=== PATIENT | female | born 2000 | race Caucasian/White ===

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

== ENCOUNTER 2018-02-05 15:33 | Emergency (ER) | payer BC, OTHER ==
[2018-02-05 16:32] VITALS: BP 110/66
--- NOTE | 2018-02-05 17:19 | UC ---
Skin Complaint HPI - HPI Summary HPI Summary: The patient is a 18-year-old female with about a 48 hour history of a vesicular rash to her left forehead. She has no eye pain or photophobia. - History of Current Complaint Chief Complaint: UCSkin Time Seen by Provider: 02/05/18 17:00 Stated Complaint: RASH Hx Obtained From: Patient Hx Last Menstrual Period: 01/31/18 Onset/Duration: Gradual Onset, Lasting Days Skin Exposure Onset/Duration: Days Ago Onset Severity: Mild Current Severity: Moderate Pain Intensity: 5 Pain Scale Used: 0-10 Numeric Location: Discrete Character: Pain, Redness Aggravating Factor(s): Touch Alleviating Factor(s): Nothing Associated Signs & Symptoms: Positive: Rash - Allergy/Home Medications Allergies/Adverse Reactions: Allergies Allergy/AdvReac Type Severity Reaction Status Date / Time No Known Allergies Allergy Verified 02/05/18 16:27 Home Medications: Home Medications Acetaminophen TAB* [Tylenol TAB*] 650 mg PO Q4H PRN 02/05/18 [History Confirmed 02/05/18] Review of Systems Constitutional: Negative Skin: Rash Eyes: Negative ENT: Negative Respiratory: Negative Cardiovascular: Negative Gastrointestinal: Negative Genitourinary: Negative Motor: Negative Neurovascular: Negative Musculoskeletal: Negative Neurological: Negative Psychological: Negative Is Patient Immunocompromised?: No All Other Systems Reviewed And Are Negative: Yes PMH/Surg Hx/FS Hx/Imm Hx Previously Healthy: Yes - Surgical History Surgical History: Yes Surgery Procedure, Year, and Place: T&A, ~2000, [place] - Family History Known Family History: Positive: Hypertension - Maternal Grandfather, Diabetes, Respiratory Disease - mom has asthma - Social History Alcohol Use: None Substance Use Type: None Smoking Status (MU): Never Smoked Tobacco Have You Smoked in the Last Year: No Household Exposure Type: Cigarettes - Immunization History Most Recent Influenza Vaccination: Not the 2016/2016 Season Vaccination Up to Date: Yes Physical Exam Triage Information Reviewed: Yes Appearance: Well-Appearing, No Pain Distress, Well-Nourished Vital Signs: Initial Vital Signs Temp 98.5 F 02/05/18 16:28 Pulse 80 02/05/18 16:28 Resp 14 02/05/18 16:28 BP 110/66 02/05/18 16:28 Pulse Ox 100 02/05/18 16:28 Vital Signs Reviewed: Yes ENT: Positive: Hearing grossly normal. Negative: Nasal congestion, Nasal drainage, Tonsillar exudate, Trismus, Muffled voice, Hoarse voice Neck: Positive: Nontender, No Lymphadenopathy Respiratory: Positive: Lungs clear, Normal breath sounds, No respiratory distress, No accessory muscle use Cardiovascular: Positive: RRR, No Murmur Musculoskeletal: Positive: ROM Intact, No Edema Neurological: Positive: Alert Skin: Positive: rashes - see image Course/Dx - Diagnoses Provider Diagnoses: vesicular rash-?shingles Discharge - Sign-Out/Discharge Documenting (check all that apply): Patient Departure - Discharge Plan Condition: Stable Disposition: HOME Prescriptions: Famciclovir(NF) [Famvir(NF)] 500 mg PO TID #21 tab Patient Education Materials: Pardeep (ED) Referrals: Mendy Menendez PA [Primary Care Provider] - 4 Days - Billing Disposition and Condition Condition: STABLE Disposition: Home Images Head: 1 - vesicular rash
[2018-02-09 12:02] LABS: HSV 1 PCR Positive (Negative); Varicella Zoster Source LEFT FORE HEAD
== END 2018-02-05 17:24 | disposition home or self-care (01) ==
LOC: UCCORT 15:33
DX: R21 Rash and other nonspecific skin eruption (principal)
CPT/HCPCS: 87529; 87798; 99212; G0463

== ENCOUNTER 2018-08-12 12:46 | Emergency (ER) | payer SELFPAY ==
[2018-08-12 13:11] VITALS: BP 114/70
[2018-08-12] MEDS ORDERED: Fluorescein Sodium TOPICAL* 1 MG TEST STRIP ONE (14:07)
[2018-08-12] MEDS ORDERED: Fluorescein Sodium TOPICAL* 1 MG TEST STRIP OPHTHALMIC ONE (14:07)
--- NOTE | 2018-08-12 14:07 | UC ---
UC General HPI - HPI Summary HPI Summary: pt noted L eye felt itchy 2 days ago. she then noted a FB sensation to the L eye and some mild redness. side of that eye with mild crack and crusting plus outside of L upper and lower lid with mild swelling and redness. no eye pain or visual loss. no contact use, fever, headache or pain with eye movement. - History of Current Complaint Chief Complaint: UCEye Stated Complaint: LEFT EYE COMPLAINT Time Seen by Provider: 08/12/18 13:49 Hx Obtained From: Patient Hx Last Menstrual Period: 07/19/18 Onset/Duration: Gradual Onset Timing: Constant Pain Intensity: 6 Associated Signs & Symptoms: Negative: Fever, Headache - Allergy/Home Medications Allergies/Adverse Reactions: Allergies Allergy/AdvReac Type Severity Reaction Status Date / Time No Known Allergies Allergy Verified 08/12/18 13:06 PMH/Surg Hx/FS Hx/Imm Hx Previously Healthy: Yes - Surgical History Surgical History: Yes Surgery Procedure, Year, and Place: T&A, ~2000, [place] - Family History Known Family History: Positive: Hypertension - Maternal Grandfather, Diabetes, Respiratory Disease - mom has asthma - Social History Alcohol Use: None Substance Use Type: None Smoking Status (MU): Never Smoked Tobacco Have You Smoked in the Last Year: No Household Exposure Type: Cigarettes - Immunization History Most Recent Influenza Vaccination: Not the 2015/2016 Season Vaccination Up to Date: Yes Review of Systems All Other Systems Reviewed And Are Negative: Yes Constitutional: Positive: Negative Skin: Positive: Negative Eyes: Positive: Drainage, Eye Redness. Negative: Blurred Vision, Diplopia ENT: Positive: Negative Respiratory: Positive: Negative Cardiovascular: Positive: Negative Gastrointestinal: Positive: Negative Genitourinary: Positive: Negative Motor: Positive: Negative Neurovascular: Positive: Negative Musculoskeletal: Positive: Negative Neurological: Positive: Negative Psychological: Positive: Negative Physical Exam Triage Information Reviewed: Yes Appearance: Well-Appearing Vital Signs: Initial Vital Signs Temp 97.5 F 08/12/18 13:06 Pulse 73 08/12/18 13:06 Resp 14 08/12/18 13:06 BP 114/70 08/12/18 13:06 Pulse Ox 100 08/12/18 13:06 Vital Signs Reviewed: Yes Eyes: Positive: Other: - Mild swelling and slight erythema L lateral upper and lower lids. Lateral L canthus with crack in skin and crusting. PERRL, EOMI and painless. Conjunctiva L mildly injected/R is clear. AC's clear. Lids everted and no FB's. No auricular adenopathy. Visual acuity noted(see nurse note). stain L eye, no uptake. ENT: Positive: Pharynx normal, TMs normal. Negative: Nasal congestion, Nasal drainage Neck: Positive: Supple, Nontender, No Lymphadenopathy Respiratory: Positive: Lungs clear, Normal breath sounds Cardiovascular: Positive: RRR, No Murmur Abdomen Description: Positive: Nontender Bowel Sounds: Positive: Present Musculoskeletal: Positive: ROM Intact Neurological: Positive: Alert Psychological: Positive: Age Appropriate Behavior Skin Exam: Normal Course/Dx - Course Course Of Treatment: No concern for corneal ulcer, dendrites or orbital cellulitis - Differential Dx - Multi-Symptom Differential Diagnoses: Other - conjunctivitis, periorbital/orbital cellulitis, FB eye/abrasion/ulceration/dendrites. - Diagnoses Provider Diagnosis: Conjunctivitis, Periorbital cellulitis of left eye Discharge - Sign-Out/Discharge Documenting (check all that apply): Patient Departure All imaging exams completed and their final reports reviewed: No Studies - Discharge Plan Condition: Stable Disposition: HOME Prescriptions: Amoxicillin/Clavulanate TAB* [Augmentin TAB 875*] 875 mg PO BID 10 Days #20 tab Erythromycin OPTH OINT* [Erythromycin 0.5% OPTH OINT*] 1 applic LEFT EYE TID 7 Days #1 ophth.oint Patient Education Materials: Periorbital Cellulitis in Adults (ED), Conjunctivitis (ED) Referrals: Mendy Menendez PA [Primary Care Provider] - 2 Days - Billing Disposition and Condition Condition: STABLE Disposition: Home
== END 2018-08-12 14:22 | disposition home or self-care (01) ==
LOC: UCCORT 12:46
DX: H10.9 Unspecified conjunctivitis (principal); L03.213 Periorbital cellulitis
CPT/HCPCS: 99212; A9270-GY; G0463

== ENCOUNTER 2018-11-02 20:39 | Emergency (ER) | payer BC ==
--- OUTSIDE RECORDS SUMMARY | 2018-11-02 20:52 | XMS REPORT | Continuity of Care Document ---
:2000 External Reference #:[id number] Author Name Carolin Morales NP Address [address] [place] [id number] Care Team Providers Name Role Phone Yes Primary Care Physician Unavailable Payers Date Identification Numbers Payment Provider Subscriber Policy Number: good cause Medicaid (JC) Kiana Mcmillan PayID: [id number] [address] [place] [address] Advance Directives Description No Information Available Problems Description No Information Family History Date Family Member(s) Observation Comments Father Alive Father No Current Problems Mother Alive Mother No Current Problems Social History Type Date Description Comments Sex Female Education Currently working on Bachelor's Degree Marital Status Legal Status: Never Tobacco Use Reviewed: 10/09/18 Never Smoked Cigars Tobacco Use Reviewed: 10/09/18 Never Smoked A Pipe Smoking Status Reviewed: 10/09/18 Never Smoked A Pipe Tobacco Use Reviewed: 10/09/18 Never Used Smokeless Tobacco ETOH Use 10/09/2018 Denies alcohol use Recreational Drug Use 10/09/2018 Never Used Drugs Recreational Drug Use 10/09/2018 Teaching provided regarding Naloxone/Narcan Training Available At [facility] Tattoo/Piercing Piercings professionally done Condom Use Occasionally UNKNOWN 10/09/2018 Never E-Cigarette user Allergies, Adverse Reactions, Alerts Description No Known Drug Allergies Medications Description No Active Medications Immunizations Description No Information Available Vital Signs Date Vital Result Comment 10/09/2018 11:49am BP Systolic 99 mmHg BP Diastolic 64 mmHg Height 65 inches 5'5" Weight 148.00 lb BMI (Body Mass Index) 24.6 kg/m2 Results Test Date Facility Test Result H/L Range Note Laboratory test 10/09/2018 [facility] Test positive finding Urine..... Procedures Description No Information Available Encounters Description No Information Available Plan of Treatment 10/09/2018 - Carolin Morales, NPR10.2 Pelvic and perineal painComments:+UPT and pt is reporting sharp pelvic pain. Moderate tenderness ovar left adnexal area. Advised patient to go to ER to r/o an ectopic . Patient is willing to do this. Report callled to ER.Follow up:[id number] Encounter for other general counseling and advice on procreaComments:Patient would like an el. ab. Discussed her bc options afterwards. She is not certain if she will RTO or start bc with the el.ab. provider.Z32.01 Encounter for test, result positiveComments:Options counseling done. Patient is certain that she would like a el.ab.Z11.3 Encounter for screening for infections with a predominantlyNew Labs:Chlamydia/N Gonorroeae Rna Tma Urogenit, Ordered: Comments:Reviewed STD risks and prevention with patient. Patient states understanding.
[2018-11-02 20:54] VITALS: BP 120/76
--- NOTE | 2018-11-02 21:00 | UC ---
Throat Pain/Nasal Mick HPI - HPI Summary HPI Summary: 18 yo female with sore throat and swollen glands x 3 days no fever slight headache no n/v/d - History of Current Complaint Chief Complaint: UCGeneralIllness Stated Complaint: SORE THROAT Time Seen by Provider: 11/02/18 20:52 Hx Obtained From: Patient Hx Last Menstrual Period: 10/29/18 Onset/Duration: Gradual Onset Severity: Moderate Pain Intensity: 6 Pain Scale Used: 0-10 Numeric Cough: Nonproductive Associated Signs & Symptoms: Positive: Negative. Negative: Wheezing, Hoarseness , Sinus Discomfort, Nasal Discharge, Fever, Vomiting, Rash - Allergies/Home Medications Allergies/Adverse Reactions: Allergies Allergy/AdvReac Type Severity Reaction Status Date / Time No Known Allergies Allergy Verified 11/02/18 20:52 Home Medications: Home Medications Control Pill 1 tab PO DAILY 11/02/18 [History Confirmed 11/02/18] Ibuprofen TAB* [Motrin TAB* 400 MG] 400 mg PO Q6H PRN 11/02/18 [History Confirmed 11/02/18] PMH/Surg Hx/FS Hx/Imm Hx Previously Healthy: Yes - Surgical History Surgical History: Yes Surgery Procedure, Year, and Place: T&A, ~2000, [place] - Family History Known Family History: Positive: Hypertension - Maternal Grandfather, Diabetes, Respiratory Disease - mom has asthma - Social History Alcohol Use: None Substance Use Type: None Smoking Status (MU): Never Smoked Tobacco Have You Smoked in the Last Year: No Household Exposure Type: Cigarettes - Immunization History Most Recent Influenza Vaccination: Not the 2015/2016 Season Vaccination Up to Date: Yes Review of Systems All Other Systems Reviewed And Are Negative: Yes Constitutional: Positive: Negative Skin: Positive: Negative Eyes: Positive: Negative ENT: Positive: Sore Throat Respiratory: Positive: Negative Cardiovascular: Positive: Negative Gastrointestinal: Positive: Negative Genitourinary: Positive: Negative Motor: Positive: Negative Neurovascular: Positive: Negative Musculoskeletal: Positive: Negative Neurological: Positive: Negative Psychological: Positive: Negative Physical Exam Triage Information Reviewed: Yes Appearance: Well-Appearing, No Pain Distress, Well-Nourished Vital Signs: Initial Vital Signs Temp 99.0 F 11/02/18 20:53 Pulse 94 11/02/18 20:53 Resp 16 11/02/18 20:53 BP 120/76 11/02/18 20:53 Pulse Ox 100 11/02/18 20:53 Vital Signs Reviewed: Yes Eyes: Positive: Conjunctiva Clear ENT: Positive: Pharyngeal erythema, Uvula midline. Negative: Hearing grossly normal, Pharynx normal, Nasal congestion, Nasal drainage, TMs normal, TM bulging , TM dull, TM red, Tonsillar swelling, Tonsillar exudate, Trismus, Muffled voice , Hoarse voice, Dental tenderness, Sinus tenderness Dental Exam: Normal Neck: Positive: Supple, Nontender, Enlarged Nodes @ - ant cervical Respiratory: Positive: Lungs clear, Normal breath sounds, No respiratory distress, No accessory muscle use Cardiovascular: Positive: RRR, No Murmur Musculoskeletal: Positive: ROM Intact, No Edema Neurological: Positive: Alert Psychological Exam: Normal Skin Exam: Normal Throat Pain/Nasal Course/Dx - Course Course Of Treatment: strep - - Differential Dx/Diagnosis Provider Diagnosis: Pharyngitis Discharge - Sign-Out/Discharge Documenting (check all that apply): Patient Departure All imaging exams completed and their final reports reviewed: No Studies - Discharge Plan Condition: Stable Disposition: HOME Patient Education Materials: Pharyngitis (ED) Referrals: Mendy Menendez PA [Primary Care Provider] - Additional Instructions: strep test - recheck in 3-4 days if not better tylenol or advil for pain - Billing Disposition and Condition Condition: STABLE Disposition: Home
== END 2018-11-02 21:17 | disposition home or self-care (01) ==
LOC: UCCORT 20:39
DX: J02.9 Acute pharyngitis, unspecified (principal); R59.1 Generalized enlarged lymph nodes
CPT/HCPCS: 87651; 99211; G0463

== ENCOUNTER 2018-11-03 19:38 | Emergency (ER) | payer BC ==
[2018-11-03 21:18] VITALS: BP 120/71
--- NOTE | 2018-11-03 21:33 | UC ---
UC General HPI - HPI Summary HPI Summary: 4 day hx worsening headache, sore throat and some cough. now has a fever as well. seen here yesterday and rapid strep was negative. Today, + muffle voice and pain makes swallowing difficult. denies hx mono. admits to fatigue. 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 Hx Last Menstrual Period: 10/29/18 Onset/Duration: Gradual Onset Timing: Constant Pain Intensity: 9 Associated Signs & Symptoms: Negative: Abdominal Pain, SOB - Allergy/Home Medications Allergies/Adverse Reactions: Allergies Allergy/AdvReac Type Severity Reaction Status Date / Time No Known Allergies Allergy Verified 11/03/18 21:18 Home Medications: Home Medications Bcp 1 tab DAILY 11/03/18 [History Confirmed 11/03/18] PMH/Surg Hx/FS Hx/Imm Hx Previously Healthy: Yes - Surgical History Surgical History: Yes Surgery Procedure, Year, and Place: T&A, ~2000, [place] - Family History Known Family History: Positive: Hypertension - Maternal Grandfather, Diabetes, Respiratory Disease - mom has asthma - Social History Alcohol Use: None Substance Use Type: None Smoking Status (MU): Never Smoked Tobacco Have You Smoked in the Last Year: No Household Exposure Type: Cigarettes - Immunization History Most Recent Influenza Vaccination: Not the 2016/2016 Season Vaccination Up to Date: Yes Review of Systems All Other Systems Reviewed And Are Negative: Yes Constitutional: Positive: Fever, Fatigue ENT: Positive: Sore Throat Respiratory: Positive: Cough Gastrointestinal: Negative: Abdominal Pain Neurological: Positive: Headache Physical Exam Triage Information Reviewed: Yes Appearance: Ill-Appearing - but non toxic Vital Signs: Initial Vital Signs Temp 100.8 F 11/03/18 21:15 Pulse 127 11/03/18 21:15 Resp 17 11/03/18 21:15 BP 120/71 11/03/18 21:15 Pulse Ox 99 11/03/18 21:15 Vital Signs Reviewed: Yes Eyes: Positive: Conjunctiva Clear ENT: Positive: Pharyngeal erythema, TMs normal, Muffled voice, Uvula midline. Negative: Nasal drainage, Trismus Neck: Positive: Supple, Tenderness @ - anterior nodes, Enlarged Nodes @ - anterior cervical chain Respiratory: Positive: Lungs clear, Normal breath sounds, No respiratory distress Cardiovascular: Positive: No Murmur, Brisk Capillary Refill, Tachycardia - 120 Abdomen Description: Positive: Nontender, No Organomegaly, Soft. Negative: Distended, Guarding, Hepatomegaly Bowel Sounds: Positive: Present Musculoskeletal: Positive: ROM Intact Neurological: Positive: Alert Psychological: Positive: Normal Response To Family, Age Appropriate Behavior Skin Exam: Normal Skin: Negative: Rashes - Additional Comments no axillary, epitrochlear or inguinal adenopathy. Course/Dx - Course Course Of Treatment: HR improving. I think the tachycardia is fever related. Pt taking po fluids with no difficulty. - Differential Dx - Multi-Symptom Differential Diagnoses: Other - no concern for peritonsilar or retropharyngeal abscess. abruptly worse with fever, muffled voice and more pain thus will cover for presumptive bacterial infection with tc pending. will use zithromax to avoid rash if this does test positive for mono. a cbc with diff and mono testing are pending. - Diagnoses Provider Diagnosis: Pharyngitis Discharge - Sign-Out/Discharge Documenting (check all that apply): Patient Departure All imaging exams completed and their final reports reviewed: No Studies - Discharge Plan Condition: Stable Disposition: HOME Prescriptions: Azithromycin 500 mg PO DAILY 4 Days #4 tablet Patient Education Materials: Pharyngitis (ED) Forms: *Work Release Referrals: Mendy Menendez PA [Primary Care Provider] - 5 Days Additional Instructions: GO TO THE ER FOR ANY WORSENING. - Billing Disposition and Condition Condition: STABLE Disposition: Home
[2018-11-03] MEDS ORDERED: Ibuprofen ADULT LIQ* 600 MG/30 ML UDC PO ONE (21:36)
[2018-11-03] MEDS ORDERED: Dexamethasone TAB* 4 MG PO ONE (21:37)
[2018-11-03] MEDS ORDERED: Azithromycin TAB* 250 MG PO ONE (21:37)
[2018-11-04 11:46] LABS: Hematocrit 38 % (35-47); Hemoglobin 12.8 g/dL (12.0-16.0); Mean Corpuscular HGB Conc 34 g/dL (31-36); Mean Corpuscular Hemoglobin 31 pg (27-31); Mean Corpuscular Volume 93 fL (80-97); Mean Platelet Volume 9.7 fL (7.4-10.4); Platelet Count 227 10^3/uL (150-450); Red Blood Count 4.13 10^6 /uL (3.70-4.87); Red Cell Distribution Width 13 % (10.5-15); White Blood Count 12.2 10^3/uL (3.5-10.8)
[2018-11-04 12:36] LABS: Lymphocytes % 60 %; Monocytes % 3 %; Neutrophil % 28 %; Variant Lymph % 9 % (0-6)
[2018-11-04 12:37] LABS: ABS Neutrophils 3.4 10^3/ul (1.5-7.7)
--- NOTE | 2018-11-05 10:26 | UC ---
- Progress Note Progress Note: Patient tested positive for mononucleosis. She can discontinue zithromax. Avoid contact sports for 21 days. [place] is a virus and gets better with time. Recommend rest, fluids and ibuprofen as needed for pain,fever If symptoms persist or worsen, recommend follow up with PCP or return to urgent care. Course/Dx - Diagnoses Provider Diagnoses: Pharyngitis Discharge - Sign-Out/Discharge Documenting (check all that apply): Post-Discharge Follow Up All imaging exams completed and their final reports reviewed: No Studies - Discharge Plan Condition: Stable Disposition: HOME Prescriptions: Azithromycin 500 mg PO DAILY 4 Days #4 tablet Patient Education Materials: Pharyngitis (ED) Forms: *Work Release Referrals: Mendy Menendez PA [Primary Care Provider] - 5 Days Additional Instructions: GO TO THE ER FOR ANY WORSENING. - Billing Disposition and Condition Condition: STABLE Disposition: Home
== END 2018-11-03 22:22 | disposition home or self-care (01) ==
LOC: UCCORT 19:38
DX: J02.9 Acute pharyngitis, unspecified (principal); R51 Headache; R05 Cough; R50.9 Fever, unspecified; R53.83 Other fatigue; R00.0 Tachycardia, unspecified
CPT/HCPCS: 36415; 85025; 85060; 86308; 87070; 99212; A9270-GY; G0463; J8540